=== PATIENT | female | born 1960 | race Caucasian/White ===

== ENCOUNTER 2024-03-02 22:44 | Emergency (ER) | payer BC ==
[~2024-03-02 22:44] MED LIST: AZELAIC ACID50 GM TP; FLUVOXAMINE100 MG PO; SUMATRIPTAN SUC50 M1 PO; TRAMADOL 50 MG TAB PO
[2024-03-02] MEDS ORDERED: MORGIDOX 1X100100 MG PO (23:20)
[2024-03-02] MEDS ORDERED: CYANOCOBAL1000 MCG/1 IM (23:21)
[2024-03-02 23:49] VITALS: BP 145/100
== END 2024-03-02 23:49 | disposition home or self-care (01) ==
LOC: ED 22:44
DX: I83.891 Varicose veins of right lower extremity with other complications (principal)

== ENCOUNTER 2024-05-24 19:25 | Emergency (ER) | payer BC, OTHER ==
[~2024-05-24] VITALS: Ht 177.8 cm; Wt 110.5 kg
[~2024-05-24 19:25] MED LIST changes: +CYANOCOBAL1000 MCG/1 IM; +MORGIDOX 1X100100 MG PO
[2024-05-24 19:59] VITALS: BP 145/89
== END 2024-05-24 19:59 | disposition home or self-care (01) ==
LOC: ED 19:25
DX: M25.561 Pain in right knee (principal); M25.562 Pain in left knee; Z96.653 Presence of artificial knee joint, bilateral